=== PATIENT | female | born 1980 | race African-American/Black ===

== ENCOUNTER 2016-05-28 22:25 | Emergency (ER) | payer MEDICARE, OTHER ==
[~2016-05-28] VITALS: Ht 167.6 cm; Wt 143.0 kg
[~2016-05-28 22:25] MED LIST: BACT800T5 PO; CLON.2 PO; DOLU1TAB; FERR324T4 PO; INSENTRESS PO; INTE200T2 PO; METO25 PO; POTA-243 PO; PRED20 PO; PREZ150T PO; RISP4TAB41 PO; VENTAER INH; ZOVI800T13 PO; [UNRECOGNIZED DRUG - CODE] PO
[2016-05-28 22:28] VITALS: BP 175/86; PULSE 107; RESP 18; TEMP 98.2; O2SAT 98
[2016-05-29] MEDS ORDERED: RISP4TAB41 PO (04:06)
[2016-05-29] MEDS ORDERED: HYDR-3288 PO (04:06)
[2016-05-29] MEDS ORDERED: LAMI1TAB8 PO (04:06)
[2016-05-29] MEDS ORDERED: FERR325T PO (04:06)
[2016-05-29] MEDS ORDERED: POTA10CA PO (04:06)
[2016-05-29] MEDS ORDERED: VENTAER INH (04:06)
[2016-05-29] MEDS ORDERED: DOLU1TAB PO (04:06)
[2016-05-29] MEDS ORDERED: CLON0.2T PO (04:06)
[2016-05-29] MEDS ORDERED: METO100T PO (04:06)
[2016-05-29] MEDS ORDERED: INTE200T PO (04:06)
[2016-05-29] MEDS ORDERED: PREZ600T2 PO (04:06)
[2016-05-29] MEDS ORDERED: TIZA4CAP3 PO (04:06)
[2016-05-29] MEDS ORDERED: MELO-1 PO (04:06)
[2016-05-29] MEDS ORDERED: DIVA125T PO (04:06)
[2016-05-29] MEDS ORDERED: ACYC800T PO (04:06)
[2016-05-29 04:10] VITALS: BP 146/89; PULSE 81; RESP 17; O2SAT 99
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
[2016-05-29] MEDS ORDERED: PROCHLORPERAZINE INJ 10 MG/2 ML VIAL IVS ONE (04:30)
[2016-05-29] MEDS ORDERED: diphenhydrAMINE HCL 50 MG/ML VIAL IV PUSH ONE (04:30)
[2016-05-29] MEDS ORDERED: SODIUM CHLOR 0.9% 1000 ML INJ 1,000 ML IV ONE (04:30)
[2016-05-29] MEDS ORDERED: KETOROLAC TROMETHAMINE 30 MG/ML (IVP) VIAL IV PUSH ONE (04:30)
[2016-05-29] MEDS ORDERED: NAPR500T PO (05:50)
== END 2016-05-29 06:33 | disposition home or self-care (01) ==
LOC: NEPC 22:25
DX: R51 Headache (principal); M54.9 Dorsalgia, unspecified; M54.2 Cervicalgia; R11.2 Nausea with vomiting, unspecified; J45.909 Unspecified asthma, uncomplicated; I10 Essential (primary) hypertension; F17.210 Nicotine dependence, cigarettes, uncomplicated
CPT/HCPCS: 96374; 96375; 99283; J0780; J1200; J1885; J7030

== ENCOUNTER 2016-05-30 23:21 | Emergency (ER) | payer MEDICARE, OTHER ==
[~2016-05-30] VITALS: Ht 167.6 cm; Wt 143.5 kg
[~2016-05-30 23:21] MED LIST changes: +ACYC800T PO; -CLON.2 PO; +CLON0.2T PO; +DIVA125T PO; -DOLU1TAB; +DOLU1TAB PO; -FERR324T4 PO; +FERR325T PO; +HYDR-3288 PO; +INTE200T PO; -INTE200T2 PO; +LAMI1TAB8 PO; +MELO-1 PO; +METO100T PO; -METO25 PO; +NAPR500T PO; -POTA-243 PO; +POTA10CA PO; -PRED20 PO; -PREZ150T PO; +PREZ600T2 PO; +TIZA4CAP3 PO; -ZOVI800T13 PO; -[UNRECOGNIZED DRUG - CODE] PO
[2016-05-30 23:24] VITALS: BP 188/84; PULSE 85; RESP 16; TEMP 98; O2SAT 100
[2016-05-31] MEDS ORDERED: diphenhydrAMINE HCL 50 MG/ML VIAL IV PUSH ONE (00:15)
[2016-05-31] MEDS ORDERED: PROCHLORPERAZINE INJ 10 MG/2 ML VIAL IVS ONE (00:15)
[2016-05-31] MEDS ORDERED: SODIUM CHLOR 0.9% 1000 ML INJ 1,000 ML IV ONE (00:15)
[2016-05-31] MEDS ORDERED: KETOROLAC TROMETHAMINE 30 MG/ML (IVP) VIAL IV PUSH ONE (00:15)
[2016-05-31] MEDS ORDERED: DEXAMETHASONE SOD PHOS 20 MG/5 ML VIAL IV PUSH ONE (00:15)
[2016-05-31 01:00] LABS: AUTOMATED NEUTROPHIL # 3.2 TH/MM3 (1.8-7.7); BASOPHIL % 0.3 % (0.0-2.0); EOSINOPHIL # 0.2 TH/MM3 (0-0.4); EOSINOPHIL % 2.3 % (0.0-4.0); HEMATOCRIT 31.3 % (35.0-46.0); LYMPH % 49.4 % (9.0-44.0); LYMPHOCYTE # 3.6 TH/MM3 (1.0-4.8); MEAN CELL VOLUME 87.2 FL (80.0-100.0); MEAN CORPUSCULAR HEMOGLOBIN 29.6 PG (27.0-34.0); MONO % 4.7 % (0.0-8.0); NEUT % 43.3 % (16.0-70.0); PLATELET COUNT 271 TH/MM3 (150-450); RED BLOOD COUNT 3.59 MIL/MM3 (4.00-5.30); RED CELL DISTRIBUTION WIDTH 14.2 % (11.6-17.2); WHITE BLOOD COUNT 7.3 TH/MM3 (4.0-11.0)
[2016-05-31 01:09] LABS: HEMO FLAGS AUTO DIFF
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
[2016-05-31 01:21] LABS: APTT (PATIENT) 23.3 SEC (24.3-30.1); PROTHROMBIN TIME - PATIENT 10.6 SEC (9.8-11.6)
[2016-05-31 01:36] LABS: BICARBONATE 23.6 MEQ/L (21.0-32.0); POTASSIUM 3.8 MEQ/L (3.5-5.1)
[2016-05-31 01:37] LABS: PLATELET ESTIMATE SMEAR NORMAL (NORMAL); PLATELET MORPHOLOGY NORMAL (NORMAL); SCAN/DIFF AUTO DIFF CONFIRMED
[2016-05-31] MEDS ORDERED: BUTA1CAP PO (01:46)
[2016-05-31 04:40] VITALS: BP 169/79; PULSE 89; RESP 22; O2SAT 98
== END 2016-05-31 04:42 | disposition home or self-care (01) ==
LOC: NEPA 23:21
DX: R51 Headache (principal); R11.2 Nausea with vomiting, unspecified; I10 Essential (primary) hypertension; G47.30 Sleep apnea, unspecified; F17.200 Nicotine dependence, unspecified, uncomplicated; Z21 Asymptomatic human immunodeficiency virus [HIV] infection status; Z87.39 Personal history of other diseases of the musculoskeletal system and connective tissue; Z87.09 Personal history of other diseases of the respiratory system; Z86.59 Personal history of other mental and behavioral disorders; Z86.79 Personal history of other diseases of the circulatory system; Z86.69 Personal history of other diseases of the nervous system and sense organs
CPT/HCPCS: 70450; 80048; 84703; 85025; 85610; 85730; 96374; 96375; 99284; J0780; J1100; J1200; J1885; J7030

== ENCOUNTER 2016-07-29 23:34 | Inpatient (IN) | payer MEDICARE, OTHER ==
[~2016-07-29] VITALS: Ht 167.6 cm; Wt 150.0 kg
[~2016-07-29 23:34] MED LIST changes: +BUTA1CAP PO
[2016-07-29 23:36] VITALS: BP 124/67; PULSE 118; RESP 20; TEMP 98.8; O2SAT 99
[2016-07-30] VITALS (8 sets, daily range): BP systolic 104–121; BP diastolic 49–66; PULSE 97–108; RESP 15–22; TEMP 98–98.8; O2SAT 95–100
--- NOTE | 2016-07-30 01:45 | PD ---
HPI Chief Complaint: Bite or Sting Time Seen by Provider: 01:43 Travel History International Travel<30 days: No Contact w/Intl Traveler<30days: No Traveled to known affect area: No History of Present Illness HPI 36-year-old black female presents to emergency department with an abscess to her left buttocks. She states that is been present now for the past week. Over the last 24 hours it has opened it started draining bloody pus. She states that she did have some subjective fever and chills earlier but those did resolve. She denies any cough, congestion, shortness of breath, nausea, vomiting, abdominal pain, urinary symptoms. Patient has had a skin infection the past. PFSH Past Medical History Arthritis: Yes Asthma: Yes (BRONCHITIS) Autoimmune Disease: Yes (HIV+) Bipolar Disorder: Yes Anxiety: Yes Depression: No Heart Rhythm Problems: Yes (HEART MURMUR) Cancer: No Cardiovascular Problems: Yes (HTN) High Cholesterol: No Chemotherapy: No Chest Pain: No Congestive Heart Failure: No COPD: No Cerebrovascular Accident: No Diabetes: Yes (denies) Patient Takes Glucophage: No Diminished Hearing: No Endocrine: No Gastrointestinal Disorders: No GERD: No Glaucoma: No Genitourinary: No Headaches: Yes Hepatitis: No Hiatal Hernia: No Heparin Induced Thrombocytopen: No Hypertension: Yes Immune Disorder: No Implanted Vascular Access Dvce: No Kidney Stones: No Musculoskeletal: Yes Neurologic: Yes Psychiatric: Yes (BIPOLAR/SCHIZO) Reproductive: Yes (miscarriages) Respiratory: Yes (SLEEP APNEA>C PAP) Integumentary: Yes (VAGINAL LESIONS) Immunizations Current: Yes Migraines: Yes Myocardial Infarction: No Pneumonia: Yes Radiation Therapy: No Renal Failure: No Schizophrenia: Yes Seizures: No Sickle Cell Disease: No Sleep Apnea: Yes (CPAP) Thyroid Disease: No Ulcer: No Tetanus Vaccination: Unknown Influenza Vaccination: Yes PNEUMOCCOCAL Vaccine (Year): 2010 ?: Not LMP: "ON DEPO SHOTS" Menopausal: Yes : 3 Para: 1 Miscarriage: 2 Ectopic : Yes Dilation and Curettage (D&C): Yes Past Surgical History Abdominal Surgery: No AICD: No Appendectomy: No Arteriovenous Shunt: No Cardiac Surgery: No Cholecystectomy: No Ear Surgery: No Endocrine Surgery: No Eye Surgery: No Genitourinary Surgery: No Gynecologic Surgery: Yes (D & C) Insulin Pump: No Joint Replacement: No Neurologic Surgery: No Oral Surgery: No Pacemaker: No Thoracic Surgery: No Other Surgery: Yes (SUTURES TO LIP 11/25) Social History Alcohol Use: No Tobacco Use: Yes (A PACK A DAY ) Substance Use: No Allergies-Medications (Allergen,Severity, Reaction): Coded Allergies: Haldol (Verified Allergy, Severe, EPS, 07/30/16) Morphine (Verified Allergy, Severe, Hallucinations, 07/30/16) Penicillin (Verified Allergy, Severe, FACIAL EDEMA, 07/30/16) Reported Meds & Prescriptions Reported Meds & Active Scripts Active Fioricet (Asnzyzrtwa-Mihdxogoxnmyg-Icvrqwal) 50-300-40 Mg Cap 1 Cap PO Q4H PRN Naproxen 500 Mg Tab 500 Mg PO BID PRN Bactrim DS (Sulfamethoxazole-Trimethoprim) 800-160 Mg Tab 1 Tab PO BID Reported Risperdal (Risperidone) 4 Mg Tab 8 Mg PO HS Potassium Chloride ER (Potassium Chloride) 10 Meq Cap 10 Meq PO BID Metoprolol Tartrate 100 Mg Tab 100 Mg PO BID Lamivudine 300 Mg Tab 300 Mg PO DAILY Ferrous Sulfate 325 Mg Tab 325 Mg PO DAILY Intelence (Etravirine) 200 Mg Tab 200 Mg PO BID Tivicay (Dolutegravir Sodium) 50 Mg Tab 50 Mg PO DAILY Prezista (Darunavir) 600 Mg Tab 600 Mg PO BID Clonidine (Clonidine HCl) 0.2 Mg Tab 0.2 Mg PO BID Ventolin Hfa 18 GM Inh (Albuterol Sulfate) 90 Mcg/Act Aer 2 Puff INH Q4-6H PRN Acyclovir 800 Mg Tab 800 Mg PO DAILY [place] (Hydrocodone-Acetaminophen) 7.5-325 mg Tab 1 Tab PO Q4H PRN Tizanidine (Tizanidine HCl) 4 Mg Cap 4 Mg PO Q6HR Divalproex DR (Divalproex Sodium) 125 Mg Tabdr 125 Mg PO TID Meloxicam 15 Mg Tab 15 Mg PO DAILY [Insentress] 400 Mg PO BID Review of Systems Except as stated in HPI: all other systems reviewed are Neg Physical Exam Narrative GENERAL: This is a well-nourished, well-developed patient, in no apparent distress. SKIN: Patient has a very large abscess with cellulitis to the left buttocks. Over 50% of the left buttocks is indurated, thickened and tender. There is an open nidus with draining pus. There is no involvement of the anus. HEAD: Atraumatic. Normocephalic. EYES: PERRL, EOMI, no discharge or injection. No scleral icterus. EARS: Clear NOSE: Nasal turbinates appear normal. THROAT: Mucosa pink and moist. Airway patent. NECK: Trachea midline. supple, moves head freely. LUNGS: Clear to auscultation. CV: Regular in rhythm. ABDOMEN: Soft nontender. EXT: No clubbing cyanosis or edema. Data Data Last Documented VS Vital Signs Date Time Temp Pulse Resp B/P Pulse Ox O2 Delivery O2 Flow Rate FiO2 07/30/16 03:00 102 15 118/66 100 Room Air 07/29/16 23:36 98.8 Orders Complete Blood Count With Diff (07/30/16 01:49) Basic Metabolic Panel (Bmp) (07/30/16 01:49) Blood Culture (07/30/16 01:49) Wound Culture And Gram Stain (07/30/16 01:49) Iv Access Insert/Monitor (07/30/16 01:49) Vancomycin Inj (Vancomycin Inj) (07/30/16 02:00) Clindamycin Inj (Cleocin Inj) (07/30/16 02:00) Lactic Acid (07/30/16 01:49) Sodium Chlor 0.9% 1000 Ml Inj (Ns 1000 M (07/30/16 02:00) Vancomycin Inj (Vancomycin Inj) (07/30/16 02:25) Sodium Chlor 0.9% 1000 Ml Inj (Ns 1000 M (07/30/16 02:45) Place In Observation (07/30/16 ) Vital Signs (Adult) Q4H (07/30/16 03:26) Activity Oob With Assistance (07/30/16 03:26) Laboratory Mechanical Technician / Telemetry .CONTINUOUS (07/30/16 03:26) Diet Heart Healthy (07/30/16 Breakfast) Sodium Chloride 0.9% Flush (Ns Flush) (07/30/16 03:30) Sodium Chloride 0.9% Flush (Ns Flush) (07/30/16 09:00) Basic Metabolic Panel (Bmp) (07/31/16 06:00) Complete Blood Count With Diff (07/31/16 06:00) Enoxaparin Inj (Lovenox Inj) (07/30/16 09:00) Naloxone Inj (Narcan Inj) (07/30/16 03:30) Vancomycin Consult Pharmacy (Vancomycin (07/30/16 03:30) Levofloxacin 750 Mg Premix Inj (Levaquin (07/30/16 09:00) Labs Laboratory Tests Test 07/30/16 02:17 White Blood Count 16.2 TH/MM3 Red Blood Count 3.81 MIL/MM3 Hemoglobin 10.9 GM/DL Hematocrit 33.4 % Mean Corpuscular Volume 87.7 FL Mean Corpuscular Hemoglobin 28.6 PG Mean Corpuscular Hemoglobin 32.6 % Concent Red Cell Distribution Width 13.5 % Platelet Count 215 TH/MM3 Mean Platelet Volume 7.9 FL Neutrophils (%) (Auto) 71.8 % Lymphocytes (%) (Auto) 20.2 % Monocytes (%) (Auto) 6.9 % Eosinophils (%) (Auto) 0.8 % Basophils (%) (Auto) 0.3 % Neutrophils # (Auto) 11.6 TH/MM3 Lymphocytes # (Auto) 3.3 TH/MM3 Monocytes # (Auto) 1.1 TH/MM3 Eosinophils # (Auto) 0.1 TH/MM3 Basophils # (Auto) 0.0 TH/MM3 CBC Comment DIFF FINAL Differential Comment Sodium Level 141 MEQ/L Potassium Level 3.2 MEQ/L Chloride Level 108 MEQ/L Carbon Dioxide Level 23.6 MEQ/L Anion Gap 9 MEQ/L Blood Urea Nitrogen 11 MG/DL Creatinine 1.17 MG/DL Estimat Glomerular Filtration 64 ML/MIN Rate Random Glucose 102 MG/DL Lactic Acid Level 1.5 mmol/L Calcium Level 8.5 MG/DL [facility] Medical Decision Making Medical Screen Exam Complete: Yes Emergency Medical Condition: Yes Medical Record Reviewed: Yes Interpretation(s) Laboratory Tests Test 07/30/16 02:17 White Blood Count 16.2 TH/MM3 Red Blood Count 3.81 MIL/MM3 Hemoglobin 10.9 GM/DL Hematocrit 33.4 % Mean Corpuscular Volume 87.7 FL Mean Corpuscular Hemoglobin 28.6 PG Mean Corpuscular Hemoglobin 32.6 % Concent Red Cell Distribution Width 13.5 % Platelet Count 215 TH/MM3 Mean Platelet Volume 7.9 FL Neutrophils (%) (Auto) 71.8 % Lymphocytes (%) (Auto) 20.2 % Monocytes (%) (Auto) 6.9 % Eosinophils (%) (Auto) 0.8 % Basophils (%) (Auto) 0.3 % Neutrophils # (Auto) 11.6 TH/MM3 Lymphocytes # (Auto) 3.3 TH/MM3 Monocytes # (Auto) 1.1 TH/MM3 Eosinophils # (Auto) 0.1 TH/MM3 Basophils # (Auto) 0.0 TH/MM3 CBC Comment DIFF FINAL Differential Comment Sodium Level 141 MEQ/L Potassium Level 3.2 MEQ/L Chloride Level 108 MEQ/L Carbon Dioxide Level 23.6 MEQ/L Anion Gap 9 MEQ/L Blood Urea Nitrogen 11 MG/DL Creatinine 1.17 MG/DL Estimat Glomerular Filtration 64 ML/MIN Rate Random Glucose 102 MG/DL Lactic Acid Level 1.5 mmol/L Calcium Level 8.5 MG/DL Differential Diagnosis MDM: High Differential diagnoses: Abscess, folliculitis, cellulitis, lymphangitis, abrasion, contact dermatitis Narrative Course Patient has a very large abscess with cellulitis left buttocks. The patient has been informed that she will need to be admitted for this. She verbally states understanding. An incision and drainage will be performed. IV access is obtained. Chemistry, CBC, blood cultures, wound culture and venous lactate have been ordered. Patient is given 2 g of vancomycin IV and 900 mg clindamycin IV. An incision and drainage has been performed. The case has been discussed with Dr. MENCHACA who has agreed to admit the patient. Procedures Procedure Narrative I&D abscess: After the risks and benefits were discussed the following procedure was performed. The skin is prepped and draped in the usual sterile fashion using Betadine. The abscess is anesthetized with 1% lidocaine and 0.5% Marcaine. After adequate anesthesia, an 10 blade scalpel is used to make a 4 centimeter central incision. Perulant material is expressed and cultured. Loculations are broken up using curved Melany forceps. The wound is cleansed deeply using dilute Betadine and peroxide on Q-tips. The wound is packed open using iodoform gauze. A clean dressing is applied. The patient tolerated the procedure well. There was no complications. Follow-up instructions were given to the patient. Sepsis Criteria SIRS Criteria (2 or more): Heart rate over 90, WBC > 08542, < 4000 or > 10% bands Sepsis Criteria (SIRS+source): Infect source susp/known Diagnosis Primary Impression: left buttock abscess with cellulitis Additional Impression: Sepsis affecting skin Buddy Veronica Jul 30, 2016 01:44
[2016-07-30] MEDS ORDERED: SODIUM CHLOR 0.9% 1000 ML INJ 1,000 ML IV ONE ×2 (02:00→02:45)
[2016-07-30] MEDS ORDERED: VANCOMYCIN INJ 2,000 MG in SODIUM CHLOR 0.9% 250 ML INJ 250 ML IV ONE (02:00)
[2016-07-30] MEDS ORDERED: CLINDAMYCIN INJ 900 MG in SODIUM CHLORIDE 0.9% INJ 100 ML IV ONE (02:00)
[2016-07-30] MEDS ORDERED: VANCOMYCIN INJ 2,000 MG in SODIUM CHLORID 0.9% 500 ML INJ 500 ML IV ONE (02:25)
[2016-07-30 02:35] LABS: AUTOMATED NEUTROPHIL # 11.6 TH/MM3 (1.8-7.7); BASOPHIL % 0.3 % (0.0-2.0); EOSINOPHIL # 0.1 TH/MM3 (0-0.4); EOSINOPHIL % 0.8 % (0.0-4.0); HEMATOCRIT 33.4 % (35.0-46.0); HEMO FLAGS DIFF FINAL; LYMPH % 20.2 % (9.0-44.0); LYMPHOCYTE # 3.3 TH/MM3 (1.0-4.8); MEAN CELL VOLUME 87.7 FL (80.0-100.0); MEAN CORPUSCULAR HEMOGLOBIN 28.6 PG (27.0-34.0); MEAN CORPUSCULAR HGB CONC 32.6 % (32.0-36.0); MONO % 6.9 % (0.0-8.0); NEUT % 71.8 % (16.0-70.0); PLATELET COUNT 215 TH/MM3 (150-450); RED BLOOD COUNT 3.81 MIL/MM3 (4.00-5.30); RED CELL DISTRIBUTION WIDTH 13.5 % (11.6-17.2); WHITE BLOOD COUNT 16.2 TH/MM3 (4.0-11.0)
[2016-07-30 03:18] LABS: BICARBONATE 23.6 MEQ/L (21.0-32.0); POTASSIUM 3.2 MEQ/L (3.5-5.1)
[2016-07-30] MEDS ORDERED: Vancomycin Consult Pharmacy 1 EA OTHER SCH (03:30)
[2016-07-30] MEDS ORDERED: NALOXONE HCL 0.4 MG/ML AMP IV PRN (03:30)
[2016-07-30] MEDS ORDERED: SODIUM CHLORIDE 0.9% FLUSH 10 ML FLUSH IV FLUSH PRN (03:30)
--- NOTE | 2016-07-30 07:52 | HHI.HP ---
[facility] Service [facility] Primary Care Physician Mark Newton MD Admission Diagnosis left buttock abscess with cellulitis, sepsis Diagnoses: Chief Complaint: Left Buttock Abscess with Cellulitis Travel History International Travel<30 Days: No Contact w/Intl Traveler <30 Da: No Traveled to Known Affected Are: No History of Present Illness This is a pleasant 36 y/o Female who came to ER with abscess to her left Buttock , present from the last one week. Over the last 24 hours it has opened it started draining bloody pus. She states that she did have some subjective fever and chills earlier but those did resolve. She denies any cough, congestion, shortness of breath, nausea, vomiting, abdominal pain, urinary symptoms. Patient has had a skin infection the past. she was seen in ER resting comfortable no complaint at this time. Past Family Social History Past Medical History OA Bronchitis HIV Bipolar disorder Anxiety disorder Hypertension ELTON on CPAP Migraine Schizophrenia Morbid Obesity Past Surgical History No surgical History Reported Medications Reported Meds & Active Scripts Active Fioricet (Onwiomdszr-Lcxgcevotcopj-Gznihego) 50-300-40 Mg Cap 1 Cap PO Q4H PRN Naproxen 500 Mg Tab 500 Mg PO BID PRN Bactrim DS (Sulfamethoxazole-Trimethoprim) 800-160 Mg Tab 1 Tab PO BID Reported Risperdal (Risperidone) 4 Mg Tab 8 Mg PO HS Potassium Chloride ER (Potassium Chloride) 10 Meq Cap 10 Meq PO BID Metoprolol Tartrate 100 Mg Tab 100 Mg PO BID Lamivudine 300 Mg Tab 300 Mg PO DAILY Ferrous Sulfate 325 Mg Tab 325 Mg PO DAILY [place]ence (Etravirine) 200 Mg Tab 200 Mg PO BID Tivicay (Dolutegravir Sodium) 50 Mg Tab 50 Mg PO DAILY Prezista (Darunavir) 600 Mg Tab 600 Mg PO BID Clonidine (Clonidine HCl) 0.2 Mg Tab 0.2 Mg PO BID Ventolin Hfa 18 GM Inh (Albuterol Sulfate) 90 Mcg/Act Aer 2 Puff INH Q4-6H PRN Acyclovir 800 Mg Tab 800 Mg PO DAILY [place] (Hydrocodone-Acetaminophen) 7.5-325 mg Tab 1 Tab PO Q4H PRN Tizanidine (Tizanidine HCl) 4 Mg Cap 4 Mg PO Q6HR Divalproex DR (Divalproex Sodium) 125 Mg Tabdr 125 Mg PO TID Meloxicam 15 Mg Tab 15 Mg PO DAILY [Insentress] 400 Mg PO BID Allergies: Coded Allergies: Haldol (Verified Allergy, Severe, EPS, 07/30/16) Morphine (Verified Allergy, Severe, Hallucinations, 07/30/16) Penicillin (Verified Allergy, Severe, FACIAL EDEMA, 07/30/16) Active Ordered Medications Current Medications Medications (Trade) Dose Ordered Sig/Inocencio Route Start Time Stop Time Status Last Admin (NS Flush) 2 ml UNSCH PRN IV FLUSH 07/30/16 03:30 (NS Flush) 2 ml BID IV FLUSH 07/30/16 09:00 (Lovenox Inj) 40 mg Q24H SQ 07/30/16 09:00 Naloxone HCl 0.4 mg 0.4 mg UNSCH PRN IV 07/30/16 03:30 Pharmacy Profile Note 0 ml @ 0 mls/hr UNSCH OTHER 07/30/16 03:30 (Levaquin 750 Mg Premix Inj) 150 ml @ 100 mls/hr Q24H IV 07/30/16 09:00 Family History Asked to the patient and denied. Social History tobacco dependence one pack daily. Physical Exam Vital Signs Vital Signs Date Time Temp Pulse Resp B/P Pulse Ox O2 Delivery O2 Flow Rate FiO2 07/30/16 06:29 98.8 98 18 104/49 98 07/30/16 03:00 102 15 118/66 100 Room Air 07/30/16 00:59 16 07/29/16 23:36 98.8 118 20 124/67 99 Physical Exam GENERAL: Morbid Obesity in no distress SKIN: Patient has a very large abscess with cellulitis to the left buttocks. Over 50% of the left buttocks is indurated, thickened and tender. There is an open nidus with draining pus. There is no involvement of the anus. HEAD: Atraumatic. Normocephalic. EYES: PERRL, EOMI, no discharge or injection. No scleral icterus. EARS: Clear NOSE: Nasal turbinates appear normal. THROAT: Mucosa pink and moist. Airway patent. NECK: Trachea midline. supple, moves head freely. LUNGS: Clear to auscultation. CV: Regular in rhythm. ABDOMEN: Soft nontender. EXT: No clubbing cyanosis or edema. Laboratory Laboratory Tests Test 07/30/16 02:17 White Blood Count 16.2 Red Blood Count 3.81 Hemoglobin 10.9 Hematocrit 33.4 Mean Corpuscular Volume 87.7 Mean Corpuscular Hemoglobin 28.6 Mean Corpuscular Hemoglobin 32.6 Concent Red Cell Distribution Width 13.5 Platelet Count 215 Mean Platelet Volume 7.9 Neutrophils (%) (Auto) 71.8 Lymphocytes (%) (Auto) 20.2 Monocytes (%) (Auto) 6.9 Eosinophils (%) (Auto) 0.8 Basophils (%) (Auto) 0.3 Neutrophils # (Auto) 11.6 Lymphocytes # (Auto) 3.3 Monocytes # (Auto) 1.1 Eosinophils # (Auto) 0.1 Basophils # (Auto) 0.0 CBC Comment DIFF FINAL Differential Comment Sodium Level 141 Potassium Level 3.2 Chloride Level 108 Carbon Dioxide Level 23.6 Anion Gap 9 Blood Urea Nitrogen 11 Creatinine 1.17 Estimat Glomerular Filtration 64 Rate Random Glucose 102 Lactic Acid Level 1.5 Calcium Level 8.5 Date/Time Procedure Status Source Growth 07/30/16 02:25 Gram Stain Received Wound Buttock Pending 07/30/16 02:25 Wound Culture Received Wound Buttock Pending 07/30/16 02:17 Aerobic Blood Culture Received Blood Peripheral Pending 07/30/16 02:17 Anaerobic Blood Culture Received Blood Peripheral Pending Result Diagram: 07/30/1621607/30/167 Imaging No Imaging studies performed. Assessment and Plan Assessment and Plan 1. Left Buttock Cellulitis and Abscess started on Vancomycin and Clindamycin. status post I and D. Sepsis Tachycardia, WBC >10553, source of infection evident.OA, consult ID specialist 2. HIV by history to continue HAART therapy 3. Bipolar disorder to continue Psychiatric medicine 4. Anxiety disorder stable continue Benzodiazepines as needed 5. Hypertension controlled continue Home medicines 6. ELTON on CPAP consult placed to RT 7. Morbid Obesity weight loss warranted. 8. Electrolyte derangement replaced and following. DVT prophylaxis with Heparin Code Status Full Code. Discussed Condition With Patient in ER. Physician Certification 2 Midnight Certification Type: Admission for Inpatient Services Order for Inpatient Services The services are ordered in accordance with Medicare regulations or non- Medicare payer requirements, as applicable. In the case of services not specified as inpatient-only, they are appropriately provided as inpatient services in accordance with the 2-midnight benchmark. Estimated LOS (days): 4 days is the estimated time the patient will need to remain in the hospital, assuming treatment plan goals are met and no additional complications. Post-Hospital Plan: Home Armando Branham MD Jul 30, 2016 07:52
[2016-07-30] MEDS ORDERED: POTASSIUM CHLORIDE 20 MEQ CONTROLLED RELEASE TAB PO ONE (08:00)
[2016-07-30] MEDS ORDERED: ACETAMIN 325 MG/BUTALBITAL 50 MG/CAFFEINE 40 MG TAB PO PRN (08:00)
[2016-07-30 08:34] LABS: HDL CHOLESTEROL 13.6 MG/DL (40.0-60.0)
[2016-07-30 08:53] LABS: FREE T4 1.21 NG/DL (0.76-1.46)
[2016-07-30] MEDS ORDERED: FERROUS SULFATE 325 MG (65 MG ELEMENTAL IRON) TAB PO SCH (09:00)
[2016-07-30] MEDS: POTASSIUM CHLORIDE 10 MEQ CAP PO SCH ×2 (09:00→20:26)
[2016-07-30] MEDS: ETRAVIRINE 100 MG TAB PO SCH ×2 (09:00→20:26)
[2016-07-30] MEDS ORDERED: ACYCLOVIR 800 MG TAB PO SCH (09:00)
[2016-07-30] MEDS ORDERED: DOLUTEGRAVIR SODIUM 50 MG TAB PO SCH (09:00)
[2016-07-30] MEDS ORDERED: LEVOFLOXACIN 750 MG PREMIX INJ 150 ML IV SCH (09:00)
[2016-07-30] MEDS: RALTEGRAVIR 400 MG TAB PO SCH ×2 (09:00→20:26)
[2016-07-30] MEDS ORDERED: ENOXAPARIN SODIUM 40 MG/0.4 ML SYRINGE SQ SCH (09:00)
[2016-07-30] MEDS: SODIUM CHLORIDE 0.9% FLUSH 10 ML FLUSH IV FLUSH SCH ×2 (09:32→20:25)
[2016-07-30] MEDS: cloNIDine HCL 0.2 MG TAB PO SCH ×2 (09:33→20:33)
[2016-07-30] MEDS: METOPROLOL TARTRATE 100 MG TAB PO SCH ×2 (09:33→20:28)
[2016-07-30] MEDS: ACETAMINOPHEN/HYDROcodone 325 MG/7.5 MG TAB PO PRN ×2 (09:34→15:31)
[2016-07-30] MEDS: DARUNAVIR 600 MG TAB PO SCH ×2 (10:31→20:26)
[2016-07-30] MEDS: DIVALPROEX SODIUM DELAYED RELEASE 125 MG TAB PO SCH ×3 (10:31→17:18)
[2016-07-30] MEDS: RESP: ALBUTEROL 2.5 MG/IPRATROPIUM 0.5 MG NEB (SCH) NEB ×3 (10:42→19:31)
[2016-07-30 10:47] LABS: AMPHETAMINE, URINE NEG (NEG); BARBITURATES, URINE NEG (NEG); COCAINE, URINE NEG (NEG)
[2016-07-30] MEDS: VANCOMYCIN INJ 2,000 MG in SODIUM CHLORID 0.9% 500 ML INJ 500 ML IV SCH (13:11)
[2016-07-30] MEDS ORDERED: HEPARIN SODIUM - SQ 10,000 UNITS/ML VIAL SQ SCH (14:00)
--- NOTE | 2016-07-30 14:39 | PD.CONS ---
History of Present Illness Service Infectious disease Consult Requested By Dr Colt Jeffries Reason for Consult Evaluate patient with sepsis, buttock abscess, and HIV Primary Care Physician Mark Newton MD Diagnoses: History of Present Illness Patient seen and examined. Records reviewed. Patient is a 36-year-old morbidly obese female, presented to the hospital complaining of pain and redness on her left buttock in the last week. She wasn' t sure how it started, but thought she might have had some kind of an insect bite. About a day prior to admission it started draining, and she was having some subjective fever and chills. She presented to the hospital for further evaluation and treatment. Patient has not been febrile here. Her white count was elevated. She has significant cellulitis and evidence of abscess on her left buttock. The ED doc did I and D of the abscess. Patient has known HIV, and she follows with Dr. Newton. Her CD4 counts and viral loads were all good but she could not really give me specific numbers. She has not had any problem with any infection related to her HIV. Infectious disease consultation has been requested to evaluate the patient. She is currently on IV vancomycin and Levaquin. Review of Systems Constitutional: COMPLAINS OF: Fever, Chills Eyes: DENIES: Eye pain Ears, nose, mouth, throat: DENIES: Nasal discharge, Oral lesions, Throat pain, Ear Pain, Sinus Pain Respiratory: DENIES: Cough, Shortness of breath Cardiovascular: DENIES: Chest pain, Palpitations, Dyspnea on Exertion Gastrointestinal: DENIES: Abdominal pain, Diarrhea, Nausea, Vomiting, Difficulty Swallowing Genitourinary: DENIES: Urinary frequency, Dysuria Musculoskeletal: DENIES: Joint pain, Muscle aches, Joint Swelling Integumentary: DENIES: Rash Hematologic/lymphatic: DENIES: Bruising Neurologic: DENIES: Headache Psychiatric: DENIES: Confusion, Hallucinations Past Family Social History Allergies: Coded Allergies: Haldol (Verified Allergy, Severe, EPS, 07/30/16) Morphine (Verified Allergy, Severe, Hallucinations, 07/30/16) Penicillin (Verified Allergy, Severe, FACIAL EDEMA, 07/30/16) Past Medical History OA Bronchitis HIV Bipolar disorder Anxiety disorder Hypertension ELTON on CPAP Migraine Schizophrenia Morbid Obesity Past Surgical History April 2012: Examination under anesthesia. Colposcopy of the cervix, vagina and vulva. Wide local excision of the right vulva. Excisional biopsies of vaginal lesions. Diagnostic biopsy of the cervix. Active Ordered Medications Fioricet [place] Zovirax Albuterol Clonidine Prezista Depakote Lovenox Intelence Ferrous sulfate Heparin Epivir Levaquin Lopressor Potassium Isentress Vancomycin Social History Smokes one pack per day Alcohol abuse No illicit drug Physical Exam Vital Signs Vital Signs Date Time Temp Pulse Resp B/P Pulse Ox O2 Delivery O2 Flow Rate FiO2 07/30/16 12:03 97 20 114/58 95 07/30/16 10:42 98 21 07/30/16 08:06 98.0 108 20 111/55 95 07/30/16 06:29 98.8 98 18 104/49 98 07/30/16 03:00 102 15 118/66 100 Room Air 07/30/16 00:59 16 07/29/16 23:36 98.8 118 20 124/67 99 Physical Exam GENERAL: This is an obese, well-developed female, awake and alert, in no apparent distress. SKIN: Cool and dry. No generalized rash or ecchymosis. HEAD: Atraumatic. Normocephalic. No temporal or scalp tenderness. EYES: [place] conjunctivae. Pupils equal round and reactive. Extraocular motions intact. No scleral icterus. No injection or drainage. ENT: Nose without bleeding, or purulent drainage. Moist oral mucosa. No oral thrush. Throat without erythema, or or exudate. NECK: Trachea midline. No JVD. Supple, nontender, no meningeal signs. CARDIOVASCULAR: Regular rate and rhythm without murmurs, gallops, or rubs. RESPIRATORY: Clear to auscultation. Breath sounds equal bilaterally. No wheezes , rales, or rhonchi. GASTROINTESTINAL: Abdomen soft, obese, non-tender, nondistended. No hepato- splenomegaly, or palpable masses. No guarding. BACK: Has a large area of redness and induration on L buttock, with tenderness , and there is a 1.5-2 inch long incision with packing, and has bloody drainage. NO foul odor. MUSCULOSKELETAL: Extremities without clubbing, cyanosis, or edema. No joint tenderness, effusion. No calf tenderness. Negative Homans sign bilaterally. NEUROLOGICAL: Awake and alert. Cranial nerves II through XII intact. Motor and sensory grossly within normal limits. Five out of 5 muscle strength in all muscle groups. Normal speech. PSYCH: Normal affect, calm and cooperative LINE: PIV with no evidence of infection Laboratory Laboratory Tests Test 07/30/16 07/30/16 02:17 08:30 White Blood Count 16.2 Red Blood Count 3.81 Hemoglobin 10.9 Hematocrit 33.4 Mean Corpuscular Volume 87.7 Mean Corpuscular Hemoglobin 28.6 Mean Corpuscular Hemoglobin 32.6 Concent Red Cell Distribution Width 13.5 Platelet Count 215 Mean Platelet Volume 7.9 Neutrophils (%) (Auto) 71.8 Lymphocytes (%) (Auto) 20.2 Monocytes (%) (Auto) 6.9 Eosinophils (%) (Auto) 0.8 Basophils (%) (Auto) 0.3 Neutrophils # (Auto) 11.6 Lymphocytes # (Auto) 3.3 Monocytes # (Auto) 1.1 Eosinophils # (Auto) 0.1 Basophils # (Auto) 0.0 CBC Comment DIFF FINAL Differential Comment Sodium Level 141 Potassium Level 3.2 Chloride Level 108 Carbon Dioxide Level 23.6 Anion Gap 9 Blood Urea Nitrogen 11 Creatinine 1.17 Estimat Glomerular Filtration 64 Rate Random Glucose 102 Lactic Acid Level 1.5 Calcium Level 8.5 Triglycerides Level 144 Cholesterol Level 130 LDL Cholesterol 88 HDL Cholesterol 13.6 Cholesterol/HDL Ratio 9.55 Vitamin B12 Level 1166 Folate 8.3 Free Thyroxine 1.21 Thyroid Stimulating Hormone 2.410 3rd Gen Urine Opiates Screen NEG Urine Barbiturates Screen NEG Urine Amphetamines Screen NEG Urine Benzodiazepines Screen NEG Urine Cocaine Screen NEG Urine Cannabinoids Screen NEG Date/Time Procedure Status Source Growth 07/30/16 02:25 Gram Stain - Final Resulted Wound Buttock 07/30/16 02:25 Wound Culture Resulted Wound Buttock Pending 07/30/16 02:17 Aerobic Blood Culture Received Blood Peripheral Pending 07/30/16 02:17 Anaerobic Blood Culture Received Blood Peripheral Pending Result Diagram: 07/30/1621607/30/16216 Assessment and Plan Assessment and Plan IMPRESSION L buttock cellulitis with abscess, S/P I and D HIV RECOMMENDATION Continue IV Vanco Continue Levaquin Wound care to the I and D area - Will need to continue packing to allow infected fluid to come out Follow cultures Follow CBC Monitor progress I will adjust antibiotic and make further recommendation regarding course of treatment once cultures are available Continue HIV medication I will follow along with you Thank you for this consultation Discussed Condition With Explained plan to the patient Keena Schuler MD Jul 30, 2016 14:39
[2016-07-30 16:28] LABS: HEMOGLOBIN A1a 0.8 %; HEMOGLOBIN Ao 84.2 %; HEMOGLOBIN F 1.2 %; HEMOGLOBIN LA1C 1.9 %
[2016-07-30] MEDS ORDERED: risperiDONE 3 MG TAB PO SCH (21:00)
[2016-07-30] MEDS ORDERED: risperiDONE 1 MG TAB PO SCH (21:00)
[2016-07-31] MEDS: RESP: ALBUTEROL 2.5 MG/IPRATROPIUM 0.5 MG NEB (SCH) NEB ×2 (03:07→08:13)
[2016-07-31] MEDS: VANCOMYCIN INJ 2,000 MG in SODIUM CHLORID 0.9% 500 ML INJ 500 ML IV SCH (03:10)
[2016-07-31 04:45] VITALS: BP 99/56; PULSE 101; RESP 18; TEMP 98.9; O2SAT 94
--- NOTE | 2016-07-31 07:48 | HHI.PR ---
Subjective Remarks This is a pleasant 36 y/o Female who came to ER with abscess to her left Buttock , present from the last one week. Over the last 24 hours it has opened it started draining bloody pus. She states that she did have some subjective fever and chills earlier but those did resolve. She denies any cough, congestion, shortness of breath, nausea, vomiting, abdominal pain, urinary symptoms. Patient has had a skin infection the past. she was seen in ER resting comfortable no complaint at this time. 07/31: Patient not seen today she decided to sign against Medical advise, Signed AMA Objective Vital Signs Date Time Temp Pulse Resp B/P Pulse Ox O2 Delivery O2 Flow Rate FiO2 07/31/16 04:45 98.9 101 18 99/56 94 07/30/16 20:29 98.8 101 18 117/61 100 07/30/16 19:31 97 07/30/16 14:53 98.2 99 22 121/58 95 07/30/16 12:03 97 20 114/58 95 07/30/16 10:42 98 21 07/30/16 08:06 98.0 108 20 111/55 95 I/O 07/30/16 07/30/16 07/30/16 07/31/16 07/31/16 07/31/16 07:00 15:00 23:00 07:00 15:00 23:00 Intake Total 2500 ml 145 ml 475 ml Balance 2500 ml 145 ml 475 ml Intake IV Total 2500 ml 145 ml 475 ml # Voids 1 Result Diagram: 07/30/16 0217 07/30/16216 Imaging No Imaging studies Procedures Status Post I and D performed in ER. Other Results Laboratory Tests Test 07/30/16 07/30/16 02:17 08:30 White Blood Count 16.2 TH/MM3 Red Blood Count 3.81 MIL/MM3 Hemoglobin 10.9 GM/DL Hematocrit 33.4 % Mean Corpuscular Volume 87.7 FL Mean Corpuscular Hemoglobin 28.6 PG Mean Corpuscular Hemoglobin 32.6 % Concent Red Cell Distribution Width 13.5 % Platelet Count 215 TH/MM3 Mean Platelet Volume 7.9 FL Neutrophils (%) (Auto) 71.8 % Lymphocytes (%) (Auto) 20.2 % Monocytes (%) (Auto) 6.9 % Eosinophils (%) (Auto) 0.8 % Basophils (%) (Auto) 0.3 % Neutrophils # (Auto) 11.6 TH/MM3 Lymphocytes # (Auto) 3.3 TH/MM3 Monocytes # (Auto) 1.1 TH/MM3 Eosinophils # (Auto) 0.1 TH/MM3 Basophils # (Auto) 0.0 TH/MM3 CBC Comment DIFF FINAL Differential Comment Sodium Level 141 MEQ/L Potassium Level 3.2 MEQ/L Chloride Level 108 MEQ/L Carbon Dioxide Level 23.6 MEQ/L Anion Gap 9 MEQ/L Blood Urea Nitrogen 11 MG/DL Creatinine 1.17 MG/DL Estimat Glomerular Filtration 64 ML/MIN Rate Random Glucose 102 MG/DL Hemoglobin A1c 5.7 % Lactic Acid Level 1.5 mmol/L Calcium Level 8.5 MG/DL Triglycerides Level 144 MG/DL Cholesterol Level 130 MG/DL LDL Cholesterol 88 MG/DL HDL Cholesterol 13.6 MG/DL Cholesterol/HDL Ratio 9.55 RATIO Vitamin B12 Level 1166 PG/ML Folate 8.3 NG/ML Free Thyroxine 1.21 NG/DL Thyroid Stimulating Hormone 2.410 uIU/ML 3rd Gen Urine Opiates Screen NEG Urine Barbiturates Screen NEG Urine Amphetamines Screen NEG Urine Benzodiazepines Screen NEG Urine Cocaine Screen NEG Urine Cannabinoids Screen NEG Objective Remarks Patient not seen today she decided to sign against Medical advise, Signed AMA Medications and IVs Current Medications Medications (Trade) Dose Ordered Sig/Inocencio Route Start Time Stop Time Status Last Admin (NS Flush) 2 ml UNSCH PRN IV FLUSH 07/30/16 03:30 (NS Flush) 2 ml BID IV FLUSH 07/30/16 09:00 07/30/16 20:25 (Lovenox Inj) 40 mg Q24H SQ 07/30/16 09:00 07/30/16 09:34 Naloxone HCl 0.4 mg 0.4 mg UNSCH PRN IV 07/30/16 03:30 Pharmacy Profile Note 0 ml @ 0 mls/hr UNSCH OTHER 07/30/16 03:30 (Levaquin 750 Mg Premix Inj) 150 ml @ 100 mls/hr Q24H IV 07/30/16 09:00 07/30/16 09:32 (Zovirax) 800 mg DAILY PO 07/30/16 09:00 07/30/16 10:31 (Catapres) 0.2 mg BID PO 07/30/16 09:00 07/30/16 09:33 (Prezista) 600 mg BID PO 07/30/16 09:00 07/30/16 20:26 (Depakote Dr) 125 mg TID PO 07/30/16 09:00 07/30/16 17:18 (Ferrous Sulfate) 325 mg DAILY PO 07/30/16 09:00 07/30/16 09:33 ([place] 7.5-325 Mg) 1 tab Q4H PRN PO 07/30/16 08:00 07/30/16 15:31 (Epivir) 300 mg DAILY PO 07/30/16 09:00 07/30/16 09:34 (Lopressor) 100 mg BID PO 07/30/16 09:00 07/30/16 20:28 (KCl) 10 meq BID PO 07/30/16 09:00 07/30/16 20:26 (Fioricet 325-50-40) 1 tab Q4H PRN PO 07/30/16 08:00 (Intelence) 200 mg BID PO 07/30/16 09:00 07/30/16 20:26 (risperDAL) 6 mg HS PO 07/30/16 21:00 07/30/16 20:25 Raltegravir 400 mg 400 mg BID PO 07/30/16 09:00 07/30/16 20:26 (Vancomycin Inj/ NS 500 ml Inj) 520 ml @ 250 mls/hr Q12H IV 07/30/16 14:00 07/31/16 03:10 Miscellaneous Information SPECIFIC LAB TO BE DRAWN:VANCOMYCIN TROUGH DATE TO... ONCE ONCE .XX 07/31/16 13:45 07/31/16 13:46 (risperDAL) 2 mg HS PO 07/30/16 21:00 07/30/16 20:25 A/P Assessment and Plan 1. Left Buttock Cellulitis and Abscess started on Vancomycin and Clindamycin. status post I and D. Sepsis Tachycardia, WBC >82976, source of infection evident.OA, ID following Doctor Keena Schuler Appreciated Specialist Assistance. 2. HIV by history to continue HAART therapy 3. Bipolar disorder to continue Psychiatric medicine 4. Anxiety disorder stable continue Benzodiazepines as needed 5. Hypertension controlled continue Home medicines 6. ELTON on CPAP consult placed to RT 7. Morbid Obesity weight loss warranted. 8. Electrolyte derangement replaced and following. DVT prophylaxis with Heparin Code Status Full Code. Patient not seen today she decided to sign against Medical advise, Signed AMA Discharge Planning Patient not seen today she decided to sign against Medical advise, Signed AMA Armando Branham MD Jul 31, 2016 07:48 6. ELTON on CPAP consult placed to RT 7. Morbid Obesity weight loss warranted. 8. Electrolyte derangement replaced and following. DVT prophylaxis with Heparin Code Status Full Code. Discussed Condition With Armando Branham MD Jul 31, 2016 07:48
[2016-07-31] MEDS ORDERED: PHARMACY ORDERED LAB ONE (13:45)
--- NOTE | 2016-07-31 15:12 | HHI.DS ---
Discharge Summary Admission Date Jul 30, 2016 at 03:52 Discharge Date: Jul 31, 2016 Admitting Diagnosis left buttock abscess with cellulitis, sepsis (1) Left buttock abscess ICD Code: L02.31 Diagnosis: Principal Procedures Status post I and D. Brief History - From Admission This is a pleasant 36 y/o Female who came to ER with abscess to her left Buttock , present from the last one week. Over the last 24 hours it has opened it started draining bloody pus. She states that she did have some subjective fever and chills earlier but those did resolve. She denies any cough, congestion, shortness of breath, nausea, vomiting, abdominal pain, urinary symptoms. Patient has had a skin infection the past. she was seen in ER resting comfortable no complaint at this time. CBC/BMP: 07/30/167 07/30/16 0217 Significant Findings Laboratory Tests Test 07/30/16 02:17 White Blood Count 16.2 TH/MM3 (4.0-11.0) Red Blood Count 3.81 MIL/MM3 (4.00-5.30) Hemoglobin 10.9 GM/DL (11.6-15.3) Hematocrit 33.4 % (35.0-46.0) Neutrophils (%) (Auto) 71.8 % (16.0-70.0) Neutrophils # (Auto) 11.6 TH/MM3 (1.8-7.7) Monocytes # (Auto) 1.1 TH/MM3 (0-0.9) Potassium Level 3.2 MEQ/L (3.5-5.1) Chloride Level 108 MEQ/L (98-107) Creatinine 1.17 MG/DL (0.50-1.00) Estimat Glomerular Filtration 64 ML/MIN (>89) Rate HDL Cholesterol 13.6 MG/DL (40.0-60.0) Vitamin B12 Level 1166 PG/ML (193-986) Imaging No Imaging Performed. PE at Discharge Patient not seen today she decided to sign against Medical advise, Signed AMA Hospital Course This is a pleasant 36 y/o Female who came to ER with abscess to her left Buttock , present from the last one week. Over the last 24 hours it has opened it started draining bloody pus. She states that she did have some subjective fever and chills earlier but those did resolve. She denies any cough, congestion, shortness of breath, nausea, vomiting, abdominal pain, urinary symptoms. Patient has had a skin infection the past. she was seen in ER resting comfortable no complaint at this time. 07/31: Patient not seen today she decided to sign against Medical advise, Signed AMA Assessment and Plan 1. Left Buttock Cellulitis and Abscess started on Vancomycin and Clindamycin. status post I and D. Sepsis Tachycardia, WBC >26339, source of infection evident.OA, ID following Doctor Keena Schuler Appreciated Specialist Assistance. 2. HIV by history to continue HAART therapy 3. Bipolar disorder to continue Psychiatric medicine 4. Anxiety disorder stable continue Benzodiazepines as needed 5. Hypertension controlled continue Home medicines 6. EL[place] on CPAP consult placed to RT 7. Morbid Obesity weight loss warranted. 8. Electrolyte derangement replaced and following. DVT prophylaxis with Heparin Code Status Full Code. Patient not seen today she decided to sign against Medical advise, Signed AMA Discharge Planning Patient not seen today she decided to sign against Medical advise, Signed AMA Pt Condition on Discharge: Stable Discharge Disposition: Discharge Home Discharge Time: <= 30 minutes Armando Branham MD Jul 31, 2016 15:11
== END 2016-07-31 09:59 | disposition left against medical advice (07) | DRG 872 ==
LOC: NEPD 23:34 → NEDA 07-30 03:51 → INTOOBSV 07-30 03:51 → OBSVTOIN 07-30 03:52 → NEPGCP 07-30 06:08
PROVIDERS: ADMIT Internal Medicine; ATTEND Internal Medicine
PROC: 0H98XZZ Drainage of Buttock Skin, External Approach (ICD-10-PCS; principal; 2016-07-29)
DX: A41.9 Sepsis, unspecified organism (principal); Z99.81 Dependence on supplemental oxygen; L02.31 Cutaneous abscess of buttock; L03.317 Cellulitis of buttock; Z68.43 Body mass index [BMI] 50.0-59.9, adult; E66.01 Morbid (severe) obesity due to excess calories; J45.909 Unspecified asthma, uncomplicated; I10 Essential (primary) hypertension; F31.9 Bipolar disorder, unspecified; F41.9 Anxiety disorder, unspecified; G43.909 Migraine, unspecified, not intractable, without status migrainosus; G47.33 Obstructive sleep apnea (adult) (pediatric); M19.90 Unspecified osteoarthritis, unspecified site; F20.9 Schizophrenia, unspecified; F17.210 Nicotine dependence, cigarettes, uncomplicated; Z21 Asymptomatic human immunodeficiency virus [HIV] infection status
CPT/HCPCS: 10061; 80048; 80061; 80307; 82607; 82746; 83036; 83605; 84439; 84443; 85025; 86403; 87040; 87070; 87186; 87205; 94640; 94664; 96365; J1650; J1956; J3370; J7030; J7040